=== PATIENT | male | born 1970 | race Caucasian/White ===

== ENCOUNTER 2019-10-23 10:03 | Emergency (ER) | payer OTHER, SELFPAY ==
[2019-10-23 10:29] VITALS: PULSE 81; RESP 16; TEMP 36.3; O2SAT 97
--- NOTE | 2019-10-23 11:25 | ED.EAR ---
HPI - Ear Problem General Chief complaint: Ear Stated complaint: Ear/Nose/ Throat Time Seen by Provider: 10/23/19 11:25 Source: patient and RN notes reviewed Mode of arrival: ambulatory Limitations: no limitations History of Present Illness HPI Narrative: This is a 49 years old male presented office for evaluation of right ear pain for 2 weeks. He completed an antibiotic that his doctor called in for him with no changes in his symptoms. He admits to swimming. Right ear pain described as clock and muffle noise. Stated certain words or sounds irritated his right ear. He does not use Q-tips to clean his ear. Related Data Home Medications Medication Instructions Recorded Confirmed cefdinir mg 10/23/19 ezetimibe mg 10/23/19 levothyroxine 10/23/19 rabeprazole mg PO 10/23/19 rosuvastatin mg 10/23/19 Allergies Allergy/AdvReac Type Severity Reaction Status Date / Time No Known Allergies Allergy Unverified 11/13/17 17:47 Review of Systems Review of Systems: Narrative: CONSTITUTIONAL: Denies fever or feeling ill ENT: Denies congestion or sore throat CARDIOVASCULAR: Denies chest pain RESPIRATORY: Denies dyspnea GASTROINTESTINAL: Denies abdominal pain, nausea, vomiting, diarrhea. SKIN: Denies rash MUSCULOSKELETAL: Denies acute back pain NEUROLOGIC: Denies lightheaded PMFSH Past Medical History Medical History (Updated 10/23/19 @ 12:02 by KELLY Whitmore) HLD (hyperlipidemia) Hyperthyroidism Comments At time of signature, I agree with nursing past medical, surgical, social and family history. There is no relevant family history pertinent to the presenting complaint. Exam Narrative: Exam Narrative: GENERAL: This is a well-nourished, well-developed patient, in no apparent distress. EARS: External ears normal, left canal and TM normal. Right TM noted cerumen impaction. Hearing grossly intact. NOSE: External nose normal with no obvious nasal discharge, nares without redness, no rhinorrhea. THROAT: Mucous membranes moist, posterior pharynx clear. NECK: Neck supple, non-tender without lymphadenopathy, masses or thyromegaly. CARDIOVASCULAR: Regular rate and rhythm without murmurs, gallops, or rubs. RESPIRATORY: Clear to auscultation. Breath sounds equal bilaterally. No wheezes, rales, or rhonchi. GASTROINTESTINAL: Abdomen soft, non-tender, nondistended. Bowel sounds are active. No guarding. NEURO: awake, alert, and oriented to person, place and time. There were no obvious focal neurologic abnormalities. Steady gait [place] Coma Scale Eye Opening: Spontaneous 4 [place] Coma Scale Motor: Obeys Commands 6 [place] Coma Scale Verbal: Oriented 5 Course Vital Signs Vital signs: Vital Signs Temperature 97.4 F L 10/23/19 10:29 Pulse Rate 81 10/23/19 10:29 Respiratory Rate 16 10/23/19 10:29 Pulse Oximetry 97 10/23/19 10:29 Temperature 97.4 F L 10/23/19 10:29 Pulse Rate 81 10/23/19 10:29 Respiratory Rate 16 10/23/19 10:29 Blood Pressure 156/92 H 10/23/19 11:53 Pulse Oximetry 97 10/23/19 10:29 Procedures Ear Wax Removal Right Ear: Ear Wax Removal Date: 10/23/19 Results: Re-examined: cerumen removed completely and other (no foreign body noted) TM Examination: TM(s) intact, normal appearance Ear Canal Exam: other (appears erythema and edematous) Patient Tolerated Procedure: well and no complications Complications: no problems Technique: ear canal irrigated and ear canal curetted Medical Decision Making MDM Narrative Medical decision making narrative: Elevated BP noted: patient is informed that they may have pre-hypertension or hypertension based on a blood pressure reading in the department. I recommend the patient call the primary care provider listed on their discharge instructions or a physician of their choice this week to arrange follow-up for further evaluation of possible pre-hypertension or hypertension within 1-2week. D
[2019-10-23 11:44] VITALS: BP 142/90
[2019-10-23 11:53] VITALS: BP 156/92
== END 2019-10-23 11:54 | disposition home or self-care (01) ==
PROVIDERS: Emergency Provider Nurse Practitioner
DX: H60.501 Unspecified acute noninfective otitis externa, right ear (principal); H61.21 Impacted cerumen, right ear; E05.90 Thyrotoxicosis, unspecified without thyrotoxic crisis or storm; E78.5 Hyperlipidemia, unspecified
CPT/HCPCS: 69210; 99213; G0463